=== PATIENT | female | born 1980 | race Caucasian/White ===

== ENCOUNTER 2020-06-29 08:37 | Emergency (ER) | payer MEDICAID, SELFPAY ==
[~2020-06-29] VITALS: Ht 165.1 cm; Wt 68.0 kg
[2020-06-29 08:51] VITALS: BP_SYST 142
[2020-06-29 09:25] VITALS: BP_SYST 140
== END 2020-06-29 09:25 | disposition home or self-care (01) ==
LOC: SED 08:37
DX: U07.1 COVID-19 (principal); Z88.6 Allergy status to analgesic agent
CPT/HCPCS: 99281

== ENCOUNTER 2020-09-29 16:06 | Emergency (ER) | payer MEDICAID, SELFPAY ==
[~2020-09-29] VITALS: Ht 165.1 cm; Wt 72.6 kg
[2020-09-29 16:09] VITALS: BP_SYST 136
--- NOTE | 2020-09-29 16:16 | NUR ---
Patient to ER bed 06 to gown for evaluation. Side rails up. Report given to EVELINE LOREDO AND EVELINE LEÓN
--- NOTE | 2020-09-29 16:24 | NUR ---
ER at bedside examining patient.
--- NOTE | 2020-09-29 16:25 | NUR ---
pt. came in with multiple complaints, c/o SOB, fatigue, palpitations, "feeling cold", weak and headache x 1 month. hx. of gastric bypass, at this time no SOB just overall feeling of weakness
--- NOTE | 2020-09-29 16:28 | NUR ---
Radiology at bedside for CXR>
[2020-09-29] MEDS ORDERED: NACL 0.9% 1,000 ML IV ONE (16:30)
--- NOTE | 2020-09-29 17:00 | NUR ---
# 20 gauge angiocath placed to R wrist. Use of asceptic technique. Opsite placed over site. Blood return noted. Flushed with 10 cc of normal saline. No evidence of infiltration noted. Patient tolerated well.
[2020-09-29 17:04] LABS: BILIRUBIN,URINE NEGATIVE (NEGATIVE); BLOOD, URINE NEGATIVE (NEGATIVE); CLARITY/URINE CLEAR (CLEAR); COLOR,URINE YELLOW (YELLOW); GLUCOSE,URINE NEGATIVE (NEGATIVE); KETONES,URINE 1+ (NEGATIVE); LEUKOCYTE ESTERASE ,URINE NEGATIVE (NEGATIVE); NITRITE, URINE NEGATIVE (NEGATIVE); PROTEIN URINE NEGATIVE (NEGATIVE); UROBILINOGEN,URINE 0.2 (0.2-1.0)
[2020-09-29 17:09] LABS: CALCIUM 8.4 mg/dL (8.4-11.0); CREATININE 0.83 mg/dL (0.55-1.30); POTASSIUM 3.7 mmol/L (3.5-5.1)
[2020-09-29 17:15] LABS: TOTAL BILIRUBIN 0.1 mg/dL (0.0-1.0)
[2020-09-29 18:03] LABS: BASOPHILS % (AUTO) 0.7 % (0.0-2.0); EOSINOPHILS % (AUTO) 0.6 % (0.0-4.0); HEMATOCRIT 34.2 % (36-48); HEMOGLOBIN 11.4 g/dL (12.0-16.0); LYMPHOCYTES # (AUTO) 1.9 K/uL (1.0-5.5); LYMPHOCYTES % (AUTO) 36.9 % (20.5-51.5); MEAN CORPUSCULAR HEMOGLOBIN 28 pg (27-31); MEAN CORPUSCULAR HGB CONC 33 % (32-36); MEAN CORPUSCULAR VOLUME 84 fL (79.0-98.0); MONOCYTES # (AUTO) 0.2 K/uL (0.0-1.0); MONOCYTES % (AUTO) 3.7 % (1.7-9.3); NEUTROPHILS # (AUTO) 2.9 K/uL (1.8-7.7); NEUTROPHILS % (AUTO) 58.1 % (40.0-70.0); PLATELET COUNT (AUTO) 435 K/uL (130-430); RED BLOOD CELL COUNT(AUTO) 4.07 MIL/uL (4.2-6.2); RED CELL DISTRIBUTION WIDTH 14.2 % (9.0-15.0)
[2020-09-29 18:34] LABS: CREATINE KINASE MB 1.3 ng/mL (0-3.6)
[2020-09-29 18:35] LABS: CKMB RELATIVE INDEX 0.4 (0.0-2.9)
[2020-09-29 18:42] VITALS: BP_SYST 129
--- NOTE | 2020-09-29 18:43 | NUR ---
Patient given written and verbal discharge instructions and verbalizes understanding. Dr. Castañeda discussed with patient the results and treatment provided. Patient in stable condition. ID arm band removed. IV catheter removed intact and dressing applied, no active bleeding. Patient educated on pain management and to follow up with PMD. Pain Scale 0. Opportunity for questions provided and answered. Medication side effect fact sheet provided.
== END 2020-09-29 18:42 | disposition home or self-care (01) ==
LOC: SED 16:06
DX: E86.0 Dehydration (principal); F41.9 Anxiety disorder, unspecified
CPT/HCPCS: 36415; 71045; 80053; 81003; 82550; 82553; 85025; 93005; 96360; 99285; J7030

== ENCOUNTER 2021-08-03 22:38 | Emergency (ER) | payer MEDICAID ==
[~2021-08-03] VITALS: Ht 157.5 cm; Wt 68.0 kg
[2021-08-03 22:38] VITALS: BP_SYST 88
[2021-08-03] MEDS ORDERED: PROCHLORPERAZINE EDISYLATE 10 MG/2 ML VIAL ONE (23:36)
[2021-08-03] MEDS ORDERED: NACL 0.9% 1,000 ML IV ONE (23:45)
[2021-08-03] MEDS ORDERED: PROCHLORPERAZINE EDISYLATE 10 MG/2 ML VIAL IVP ONE (23:45)
[2021-08-04 00:10] LABS: CALCIUM 8.4 mg/dL (8.4-11.0); CREATININE 0.6 mg/dL (0.55-1.30); POTASSIUM 4.3 mmol/L (3.5-5.1)
[2021-08-04 00:12] LABS: BASOPHILS % (AUTO) 0.3 % (0.0-2.0); EOSINOPHILS % (AUTO) 0.1 % (0.0-4.0); HEMATOCRIT 34.3 % (36-48); HEMOGLOBIN 11.3 g/dL (12.0-16.0); LYMPHOCYTES # (AUTO) 1.3 K/uL (1.0-5.5); MEAN CORPUSCULAR HEMOGLOBIN 29 pg (27-31); MEAN CORPUSCULAR HGB CONC 33 % (32-36); MEAN CORPUSCULAR VOLUME 88 fL (79.0-98.0); MONOCYTES # (AUTO) 0.5 K/uL (0.0-1.0); MONOCYTES % (AUTO) 4.7 % (1.7-9.3); NEUTROPHILS # (AUTO) 8.7 K/uL (1.8-7.7); NEUTROPHILS % (AUTO) 82.9 % (40.0-70.0); PLATELET COUNT (AUTO) 380 K/uL (130-430); RED BLOOD CELL COUNT(AUTO) 3.88 MIL/uL (4.2-6.2); RED CELL DISTRIBUTION WIDTH 13.9 % (9.0-15.0); WHITE BLOOD COUNT (AUTO) 10.5 K/uL (4.8-10.8)
[2021-08-04 00:17] LABS: ALBUMIN 3.7 g/dL (3.4-4.8); TOTAL BILIRUBIN 0.3 mg/dL (0.0-1.0)
[2021-08-04] MEDS ORDERED: MORPHINE 4 MG INJ. 4 MG/ML VIAL IVP ONE (00:30)
[2021-08-04 02:05] LABS: BILIRUBIN,URINE NEGATIVE (NEGATIVE); BLOOD, URINE 2+ (NEGATIVE); CLARITY/URINE CLEAR (CLEAR); COLOR,URINE YELLOW (YELLOW); GLUCOSE,URINE TRACE (NEGATIVE); KETONES,URINE TRACE (NEGATIVE); LEUKOCYTE ESTERASE ,URINE NEGATIVE (NEGATIVE); NITRITE, URINE NEGATIVE (NEGATIVE); PROTEIN URINE TRACE (NEGATIVE); UROBILINOGEN,URINE 0.2 (0.2-1.0)
[2021-08-04 02:28] LABS: URINE SULFO SALICYLIC ACID NEGATIVE (NEGATIVE)
[2021-08-04] MEDS ORDERED: HYDR-3917 PO (02:32)
[2021-08-04] MEDS ORDERED: ONDA-8 TL (02:32)
[2021-08-04 02:48] VITALS: BP_SYST 123
== END 2021-08-04 02:47 | disposition home or self-care (01) ==
LOC: SED 22:38
DX: K91.89 Other postprocedural complications and disorders of digestive system (principal); K56.7 Ileus, unspecified; F17.200 Nicotine dependence, unspecified, uncomplicated; Z98.51 Tubal ligation status; Z79.899 Other long term (current) drug therapy
CPT/HCPCS: 36415; 74177; 76376; 80053; 81003; 85025; 96361; 96374; 96375; 99285; J0780; J2270; J7030; Q9967

== ENCOUNTER 2022-09-22 14:01 | Emergency (ER) | payer MEDICAID ==
[~2022-09-22] VITALS: Ht 165.1 cm; Wt 67.6 kg
[~2022-09-22 14:01] MED LIST: HYDR-3917 PO; ONDA-8 TL
[2022-09-22 14:22] VITALS: BP_SYST 128
--- NOTE | 2022-09-22 14:54 | NUR ---
Placed in room 05 . Placed on ekg monitor tech, blood pressure machine and pulse oximeter. To gown for exam. Side rails up. Report given to EVELINE NGUYEN.
--- NOTE | 2022-09-22 15:00 | NUR ---
PT BIB SELF AWAKE AND ALERT AOX4, NO SOB OR DISTRESS. PT C/O SORE THROAT, EAR ACHE, FEVER. PT DENIES HX.
--- NOTE | 2022-09-22 15:01 | NUR ---
MD DR SWEET AT BEDSIDE
[2022-09-22] MEDS ORDERED: MED4 PO (17:10)
[2022-09-22 17:31] VITALS: BP_SYST 128
--- NOTE | 2022-09-22 17:31 | NUR ---
Patient given written and verbal discharge instructions and verbalizes understanding. ER MD DR SWEET discussed with patient the results and treatment provided. Patient in stable condition. ID arm band removed. Rx of MEDROL given. Patient educated on pain management and to follow up with PMD. Pain Scale 2/10. Opportunity for questions provided and answered. Medication side effect fact sheet provided.
== END 2022-09-22 17:31 | disposition home or self-care (01) ==
LOC: SED 14:01
DX: J06.9 Acute upper respiratory infection, unspecified (principal); B34.9 Viral infection, unspecified; H92.03 Otalgia, bilateral; R50.9 Fever, unspecified; J02.9 Acute pharyngitis, unspecified; Z88.6 Allergy status to analgesic agent; Z79.899 Other long term (current) drug therapy
CPT/HCPCS: 99283

== ENCOUNTER 2022-11-22 21:18 | Inpatient (IN) | payer MEDICAID ==
[~2022-11-22] VITALS: Ht 30.5 cm; Wt 73.9 kg
[~2022-11-22 21:18] MED LIST changes: +MED4 PO
[2022-11-22 21:21] VITALS: BP_SYST 142; PULSE 104; RESP 18; TEMP 98.4; O2SAT 99
[2022-11-22 22:44] LABS: BASOPHILS # (AUTO) 0.1 K/uL (0.0-0.2); BASOPHILS % (AUTO) 0.8 % (0.0-2.0); EOSINOPHILS # (AUTO) 0.1 K/uL (0.0-0.4); EOSINOPHILS % (AUTO) 0.8 % (0.0-4.0); HEMATOCRIT 24.1 % (36-48); HEMOGLOBIN 7.4 g/dL (12.0-16.0); LYMPHOCYTES # (AUTO) 0.7 K/uL (1.0-5.5); LYMPHOCYTES % (AUTO) 9.8 % (20.5-51.5); MEAN CORPUSCULAR HEMOGLOBIN 20 pg (27-31); MEAN CORPUSCULAR HGB CONC 31 % (32-36); MEAN CORPUSCULAR VOLUME 64 fL (79.0-98.0); MONOCYTES # (AUTO) 0.3 K/uL (0.0-1.0); NEUTROPHILS # (AUTO) 5.7 K/uL (1.8-7.7); NEUTROPHILS % (AUTO) 83.6 % (40.0-70.0); PLATELET COUNT (AUTO) 498 K/uL (130-430); RED BLOOD CELL COUNT(AUTO) 3.76 MIL/uL (4.2-6.2); RED CELL DISTRIBUTION WIDTH 19.4 % (9.0-15.0); WHITE BLOOD COUNT (AUTO) 6.8 K/uL (4.8-10.8)
[2022-11-22 22:52] LABS: CALCIUM 8.3 mg/dL (8.4-11.0); CREATININE 0.71 mg/dL (0.55-1.30); POTASSIUM 3.7 mmol/L (3.5-5.1)
[2022-11-22 23:18] LABS: ANISOCYTOSIS 1+; HYPOCHROMASIA 3+; OVALOCYTES MODERATE; POLYCHROMASIA 1+; TARGET CELLS FEW
[2022-11-23] MEDS ORDERED: NACL 0.9% 1,000 ML IV ONE (01:00)
[2022-11-23] MEDS ORDERED: MORPHINE 4 MG INJ. 4 MG/ML VIAL IVP ONE (01:30)
[2022-11-23 01:45] LABS: COVID19 ANTIGEN SOFIA FIA POSITIVE (NEGATIVE)
[2022-11-23 01:59] LABS: INFLUENZA TYPE A negative (NEGATIVE); INFLUENZA TYPE B NEGATIVE (NEGATIVE)
[2022-11-23] MEDS: NACL 0.9% 1,000 ML IV SCH ×2 (03:21→16:23)
[2022-11-23 05:30] VITALS: BP_SYST 117; PULSE 99; RESP 16; TEMP 96.3; O2SAT 96
[2022-11-23] MEDS ORDERED: ACETAMINOPHEN 325 MG TABLET PO PRN (05:30)
[2022-11-23] MEDS ORDERED: ONDANSETRON HCL 4 MG/2 ML VIAL IM PRN (05:30)
[2022-11-23] MEDS: guaiFENesin 200 MG/CODEINE 20 MG/ 10 ML UDC PO PRN ×3 (05:40→20:34)
[2022-11-23] MEDS: MORPHINE 4 MG INJ. 4 MG/ML VIAL IVP PRN (05:40)
[2022-11-23 07:05] LABS: INR 1.1 (0.8-1.2); PROTHROMBIN TIME 11.3 SECS (9.5-12.5)
[2022-11-23 07:08] LABS: ALBUMIN 3.2 g/dL (3.4-4.8); CALCIUM 7.5 mg/dL (8.4-11.0); CREATININE 0.64 mg/dL (0.55-1.30); POTASSIUM 3.7 mmol/L (3.5-5.1); TOTAL BILIRUBIN 0.3 mg/dL (0.0-1.0); TOTAL PROTEIN, SERUM 5.9 g/dL (6.4-8.3)
[2022-11-23 07:57] VITALS: BP_SYST 112; PULSE 83; RESP 16; TEMP 95; O2SAT 97
[2022-11-23 08:03] VITALS: O2SAT 97
[2022-11-23] MEDS: ACETAMINOPHEN 325 MG TABLET PO PRN ×3 (10:21→20:34)
[2022-11-23] MEDS: ALPRAZolam 0.25 MG TABLET PO PRN ×2 (10:23→21:59)
[2022-11-23 12:21] LABS: BASOPHILS # (AUTO) 0.1 K/uL (0.0-0.2); BASOPHILS % (AUTO) 1.3 % (0.0-2.0); EOSINOPHILS % (AUTO) 0.5 % (0.0-4.0); HEMATOCRIT 26.7 % (36-48); HEMOGLOBIN 8.3 g/dL (12.0-16.0); LYMPHOCYTES # (AUTO) 0.6 K/uL (1.0-5.5); LYMPHOCYTES % (AUTO) 14.4 % (20.5-51.5); MEAN CORPUSCULAR HEMOGLOBIN 21 pg (27-31); MEAN CORPUSCULAR HGB CONC 31 % (32-36); MEAN CORPUSCULAR VOLUME 66 fL (79.0-98.0); MONOCYTES # (AUTO) 0.3 K/uL (0.0-1.0); NEUTROPHILS # (AUTO) 3.3 K/uL (1.8-7.7); NEUTROPHILS % (AUTO) 77.8 % (40.0-70.0); PLATELET COUNT (AUTO) 394 K/uL (130-430); RED BLOOD CELL COUNT(AUTO) 4.03 MIL/uL (4.2-6.2); WHITE BLOOD COUNT (AUTO) 4.2 K/uL (4.8-10.8)
[2022-11-23 12:41] LABS: RED CELL DISTRIBUTION WIDTH 21.2 % (9.0-15.0)
[2022-11-23 12:49] VITALS: BP_SYST 118; PULSE 79; RESP 18; TEMP 97.1; O2SAT 97
[2022-11-23 16:30] VITALS: BP_SYST 121; PULSE 80; RESP 18; TEMP 97.4; O2SAT 96
[2022-11-23 20:30] VITALS: BP_SYST 114; PULSE 74; RESP 18; TEMP 98.9; O2SAT 98
[2022-11-24 02:05] VITALS: BP_SYST 134; PULSE 76; RESP 18; TEMP 96.5; O2SAT 98
[2022-11-24] MEDS: guaiFENesin 200 MG/CODEINE 20 MG/ 10 ML UDC PO PRN ×2 (02:55→08:01)
[2022-11-24] MEDS ORDERED: AZITHROMYCIN 250 MG TABLET PO ONE (04:15)
[2022-11-24] MEDS: ACETAMINOPHEN 325 MG TABLET PO PRN (04:29)
[2022-11-24 06:12] LABS: BASOPHILS % (AUTO) 0.8 % (0.0-2.0); EOSINOPHILS # (AUTO) 0.2 K/uL (0.0-0.4); EOSINOPHILS % (AUTO) 3.5 % (0.0-4.0); HEMATOCRIT 29.2 % (36-48); LYMPHOCYTES # (AUTO) 0.9 K/uL (1.0-5.5); LYMPHOCYTES % (AUTO) 18.9 % (20.5-51.5); MEAN CORPUSCULAR HEMOGLOBIN 22 pg (27-31); MEAN CORPUSCULAR HGB CONC 31 % (32-36); MEAN CORPUSCULAR VOLUME 70 fL (79.0-98.0); MONOCYTES # (AUTO) 0.4 K/uL (0.0-1.0); MONOCYTES % (AUTO) 7.9 % (1.7-9.3); NEUTROPHILS # (AUTO) 3.3 K/uL (1.8-7.7); NEUTROPHILS % (AUTO) 68.9 % (40.0-70.0); PLATELET COUNT (AUTO) 355 K/uL (130-430); RED CELL DISTRIBUTION WIDTH 23.6 % (9.0-15.0); WHITE BLOOD COUNT (AUTO) 4.8 K/uL (4.8-10.8)
[2022-11-24 06:16] LABS: CALCIUM 7.6 mg/dL (8.4-11.0); CREATININE 0.57 mg/dL (0.55-1.30); POTASSIUM 3.6 mmol/L (3.5-5.1)
[2022-11-24] MEDS: MORPHINE 4 MG INJ. 4 MG/ML VIAL IVP PRN (08:01)
[2022-11-24] MEDS: NACL 0.9% 1,000 ML IV SCH (08:03)
[2022-11-24 08:19] VITALS: BP_SYST 114; PULSE 91; RESP 16; TEMP 99.5; O2SAT 98
[2022-11-24] MEDS ORDERED: FERR220S6 PO (11:02)
[2022-11-24] MEDS ORDERED: PHEDM120 PO (11:02)
[2022-11-24 12:30] VITALS: BP_SYST 119; PULSE 84; RESP 18; TEMP 98.4; O2SAT 94
[2022-11-24 20:06] LABS: FERRITIN 14 ng/mL (15-150)
[2022-11-25] MEDS ORDERED: AZITHROMYCIN 250 MG TABLET PO SCH (09:00)
== END 2022-11-24 13:05 | disposition home or self-care (01) | DRG 137 ==
LOC: SED 21:18 → STU 11-23 02:44 → SMU 11-23 13:35
PROVIDERS: ADMIT Internal Medicine; ATTEND Internal Medicine
PROC: 30233N1 Transfusion of Nonautologous Red Blood Cells into Peripheral Vein, Percutaneous Approach (ICD-10-PCS; principal; 2022-11-23)
DX: U07.1 COVID-19 (principal); R65.10 Systemic inflammatory response syndrome (SIRS) of non-infectious origin without acute organ dysfunction; E44.1 Mild protein-calorie malnutrition; Z68.45 Body mass index [BMI] 70 or greater, adult; E87.1 Hypo-osmolality and hyponatremia; D50.9 Iron deficiency anemia, unspecified; J02.9 Acute pharyngitis, unspecified; Z88.6 Allergy status to analgesic agent; Z79.899 Other long term (current) drug therapy; Z90.49 Acquired absence of other specified parts of digestive tract; Z79.891 Long term (current) use of opiate analgesic
CPT/HCPCS: 36415; 71045; 76856-TC; 80048; 80053; 82607; 82728; 83540; 85025; 85610-TC; 85730-TC; 86886; 86900; 86901; 86920; 96361; 96374; 99285; J2270; J7030; J7040; P9021; Q0144

== ENCOUNTER 2023-03-16 17:09 | Emergency (ER) | payer OTHER, MEDICAID ==
[~2023-03-16] VITALS: Ht 165.1 cm; Wt 68.0 kg
[~2023-03-16 17:09] MED LIST changes: +FERR220S9 PO; +PHEDM120 PO
[2023-03-16 17:27] VITALS: BP_SYST 154; PULSE 93; RESP 16; TEMP 97.5; O2SAT 98
[2023-03-16] MEDS ORDERED: ACETAMINOPHEN 500 MG TABLET PO ONE (18:00)
[2023-03-16] MEDS ORDERED: ACETAMINOPHEN 500 MG TABLET ONE (18:16)
[2023-03-16] MEDS ORDERED: ACET1TAB93 PO (20:07)
[2023-03-16] MEDS ORDERED: DICL20GE TP (20:07)
[2023-03-16 20:24] VITALS: BP_SYST 154; PULSE 93; RESP 16; TEMP 97.5; O2SAT 98
== END 2023-03-16 20:24 | disposition home or self-care (01) ==
LOC: SED 17:09
DX: S40.012A Contusion of left shoulder, initial encounter (principal); S50.02XA Contusion of left elbow, initial encounter; S80.01XA Contusion of right knee, initial encounter; Z88.6 Allergy status to analgesic agent; Z79.899 Other long term (current) drug therapy; W01.0XXA Fall on same level from slipping, tripping and stumbling without subsequent striking against object, initial encounter; Y93.89 Activity, other specified; Y92.89 Other specified places as the place of occurrence of the external cause; Y99.8 Other external cause status
CPT/HCPCS: 73030; 73564; 81025; 99284

== ENCOUNTER 2023-03-19 03:49 | Emergency (ER) | payer OTHER, MEDICAID ==
[~2023-03-19] VITALS: Ht 165.1 cm; Wt 68.0 kg
[~2023-03-19 03:49] MED LIST changes: +ACET1TAB93 PO; +DICL20GE TP
[2023-03-19 03:56] VITALS: BP_SYST 140; PULSE 66; RESP 16; TEMP 97.2; O2SAT 100
[2023-03-19 05:21] LABS: BILIRUBIN,URINE NEGATIVE (NEGATIVE); BLOOD, URINE 3+ (NEGATIVE); CLARITY/URINE SL CLOUDY (CLEAR); COLOR,URINE YELLOW (YELLOW); GLUCOSE,URINE NEGATIVE (NEGATIVE); KETONES,URINE NEGATIVE (NEGATIVE); LEUKOCYTE ESTERASE ,URINE NEGATIVE (NEGATIVE); NITRITE, URINE NEGATIVE (NEGATIVE); PH,URINE 5.5 (5.0-8.0); PROTEIN URINE NEGATIVE (NEGATIVE); UROBILINOGEN,URINE 0.2 (0.2-1.0)
[2023-03-19 05:47] LABS: BACTERIA,URINE RARE /HPF (None Seen)
[2023-03-19] MEDS ORDERED: FAMO40TA7 PO (06:11)
[2023-03-19 06:12] LABS: BASOPHILS % (AUTO) 0.3 % (0.0-2.0); EOSINOPHILS % (AUTO) 0.5 % (0.0-4.0); HEMATOCRIT 29.2 % (36-48); HEMOGLOBIN 9.2 g/dL (12.0-16.0); LYMPHOCYTES # (AUTO) 0.8 K/uL (1.0-5.5); LYMPHOCYTES % (AUTO) 13.1 % (20.5-51.5); MEAN CORPUSCULAR HEMOGLOBIN 24 pg (27-31); MEAN CORPUSCULAR HGB CONC 32 % (32-36); MEAN CORPUSCULAR VOLUME 76 fL (79.0-98.0); MONOCYTES # (AUTO) 0.3 K/uL (0.0-1.0); MONOCYTES % (AUTO) 4.2 % (1.7-9.3); NEUTROPHILS # (AUTO) 4.9 K/uL (1.8-7.7); NEUTROPHILS % (AUTO) 81.9 % (40.0-70.0); PLATELET COUNT (AUTO) 404 K/uL (130-430); RED BLOOD CELL COUNT(AUTO) 3.83 MIL/uL (4.2-6.2); RED CELL DISTRIBUTION WIDTH 17.5 % (9.0-15.0); WHITE BLOOD COUNT (AUTO) 5.9 K/uL (4.8-10.8)
[2023-03-19 06:32] LABS: ALBUMIN 3.4 g/dL (3.4-4.8); CALCIUM 8.4 mg/dL (8.4-11.0); CREATININE 0.52 mg/dL (0.55-1.30); POTASSIUM 3.8 mmol/L (3.5-5.1); TOTAL BILIRUBIN 0.2 mg/dL (0.0-1.0); TOTAL PROTEIN, SERUM 6.4 g/dL (6.4-8.3)
[2023-03-19] MEDS ORDERED: PIPERACILLIN/TAZO 4.5 GM in NS 100 ML IV ONE (09:00)
[2023-03-19] MEDS ORDERED: PIPERACILLIN/TAZOBACTAM 4.5 GM/VIAL (ZOSYN) IV ONE (09:42)
[2023-03-19 11:03] VITALS: BP_SYST 135; PULSE 71; RESP 16; TEMP 97.2; O2SAT 98
== END 2023-03-19 11:04 | disposition short-term general hospital (02) ==
LOC: SED 03:49
DX: K21.9 Gastro-esophageal reflux disease without esophagitis (principal); R10.13 Epigastric pain; Z88.6 Allergy status to analgesic agent; Z79.899 Other long term (current) drug therapy
CPT/HCPCS: 99285; 74176; 96365; 80053; 81001; 83690; 85025; 36415; 76376; 81025; 81000; 81015; J2543